=== PATIENT | male | born 1945 | race Two or more races ===

== ENCOUNTER → 2017-01-28 | Outpatient (CLI) | payer OTHER ==
[2014-01-22 12:53] VITALS: BP 132/64
[2017-01-28 09:27] LABS: BASO % 1 % (0-3); EOS % 2 % (0-3); HEMATOCRIT 48.5 % (39.0-53.0); HEMOGLOBIN 16.4 g/dL (13.0-17.5); LYMPH # 2.5 x10^3/uL (1.0-4.8); LYMPH % 33 % (24-48); MEAN CORPUSCULAR HEMOGLOBIN 35 pg (25-35); MEAN CORPUSCULAR HGB CONC 34 g/dL (31-37); MEAN CORPUSCULAR VOLUME 105 fL (79-100); MONO % 12 % (0-9); NEUT % 52 % (31-73); PLATELET COUNT 200 x10^3/uL (140-400); RED BLOOD COUNT 4.63 x10^6/uL (4.30-5.70); RED CELL DISTRIBUTION WIDTH 13.3 % (11.5-14.5); WHITE BLOOD COUNT 7.5 x10^3/uL (4.0-11.0)
[2017-01-28 09:53] LABS: ALBUMIN 4.2 g/dL (3.4-5.0); ALBUMIN/GLOBULIN RATIO 1.1 (1.0-1.7); CREATININE 0.9 mg/dL (0.7-1.3); GFR 83.7; POTASSIUM 4.2 mmol/L (3.5-5.1); TOTAL BILIRUBIN 0.5 mg/dL (0.2-1.0); TOTAL PROTEIN 7.9 g/dL (6.4-8.2)
== END | disposition home or self-care (01) ==
LOC: LAB 09:05
PROVIDERS: ATTEND Internal Medicine Cardiovascular Disease
DX: E11.9 Type 2 diabetes mellitus without complications (principal); I10 Essential (primary) hypertension; E78.2 Mixed hyperlipidemia; J44.9 Chronic obstructive pulmonary disease, unspecified; K76.0 Fatty (change of) liver, not elsewhere classified
CPT/HCPCS: 36415; 80053; 83036; 83700; 85025

== ENCOUNTER 2017-10-20 06:43 | Outpatient (CLI) | payer OTHER ==
[2017-10-20] MEDS ORDERED: LIDOCAINE 2% 20 ML VIAL. (07:07)
[2017-10-20] MEDS ORDERED: IODIXANOL 320 MG/ML 100 ML VIAL. (07:07)
[2017-10-20 07:45] LABS: HEMATOCRIT 41.1 % (39.0-53.0); HEMOGLOBIN 13.9 g/dL (13.0-17.5); MEAN CORPUSCULAR HEMOGLOBIN 35 pg (25-35); MEAN CORPUSCULAR HGB CONC 34 g/dL (31-37); MEAN CORPUSCULAR VOLUME 103 fL (79-100); PLATELET COUNT 219 x10^3/uL (140-400); RED BLOOD COUNT 3.97 x10^6/uL (4.30-5.70); RED CELL DISTRIBUTION WIDTH 14.2 % (11.5-14.5); WHITE BLOOD COUNT 7.4 x10^3/uL (4.0-11.0)
[2017-10-20 07:50] LABS: ANION GAP 2 (6-14); BLOOD UREA NITROGEN 22 mg/dL (8-26); CALCIUM 8.3 mg/dL (8.5-10.1); CARBON DIOXIDE 30 mmol/L (21-32); CHLORIDE 106 mmol/L (98-107); CREATININE 1.1 mg/dL (0.7-1.3); GFR 66.2; GLUCOSE 96 mg/dL (70-99); POTASSIUM 3.9 mmol/L (3.5-5.1); SODIUM 138 mmol/L (136-145)
[2017-10-20 08:03] LABS: INR 1.1 (0.8-1.1); PARTIAL THROMBOPLASTIN TIME 32 SEC (24-38); PROTHROMBIN TIME PATIENT 13.5 SEC (11.7-14.0)
[2017-10-20] MEDS ORDERED: fentaNYL PF VIAL 100 MCG/2 ML VIAL (08:24)
[2017-10-20] MEDS ORDERED: MIDAZOLAM HCL/PF 2 MG/2 ML VIAL. (08:25)
[2017-10-20] MEDS: IODIXANOL 320 MG/ML 100 ML VIAL. IART (08:45)
[2017-10-20] MEDS: LIDOCAINE 2% 20 ML VIAL. IJ (08:55)
[2017-10-20] MEDS: MIDAZOLAM HCL/PF 2 MG/2 ML VIAL. IV (08:56)
[2017-10-20] MEDS: fentaNYL PF VIAL 100 MCG/2 ML VIAL IV (08:57)
[2017-10-20] MEDS ORDERED: 0.9 % SODIUM CHLORIDE 10 ML DISP.SYRIN. IV (09:00)
[2017-10-20] MEDS ORDERED: NITROGLYCERIN SUBLINGUAL 0.4 MG BOTTLE OF 25. SL (09:00)
== END 2017-10-20 11:36 | disposition home or self-care (01) ==
LOC: CCL 06:43
DX: I25.110 Atherosclerotic heart disease of native coronary artery with unstable angina pectoris (principal); I10 Essential (primary) hypertension; K21.9 Gastro-esophageal reflux disease without esophagitis; Z87.891 Personal history of nicotine dependence; Z79.82 Long term (current) use of aspirin; Z79.899 Other long term (current) drug therapy; Z79.01 Long term (current) use of anticoagulants
CPT/HCPCS: 36415; 80048; 85027; 85610; 85730; 93458; 99152; 99153; C1769; C1771; C1892; G0269; J1644; J2001; J2250; J3010

== ENCOUNTER 2018-02-24 08:05 | Emergency (ER) | payer OTHER ==
[~2018-02-24] VITALS: Ht 172.7 cm; Wt 81.6 kg
[~2018-02-24 08:05] MED LIST: ASPI-630 PO; ISOS30TA4 PO; LISI10TA2 PO; METO25TA4 PO; NAPR-585 PO; OMEP40CA5 PO
[2018-02-24 08:35] VITALS: BP 148/69
[2018-02-24] MEDS ORDERED: HYDR-971 PO (08:43)
[2018-02-24] MEDS ORDERED: METH4TAB2 PO (08:43)
--- NOTE | 2018-02-24 08:44 | PHYS DOC ---
Past Medical History Past Medical History: CAD, GERD, Heart Disease, Hypertension Past Surgical History: No Surgical History Alcohol Use: None Drug Use: None Adult General Chief Complaint Chief Complaint: LOWER BACK PAIN OR INJURY HPI HPI Patient is a 72 year old male who presents with pain shooting through his buttock and into his right leg. The patient states that he was picking up a piece of plywood when he felt a pulling sensation. He denies spontaneous loss of bowel or bladder, saddle numbness or foot drop. He is able to bear weight on that extremity but states it is painful. He has not taken [id number] pain medications for this injury. Review of Systems Review of Systems Constitutional: Denies fever or chills [] Respiratory: Denies cough or shortness of breath [] Cardiovascular: No additional information not addressed in HPI [] GI: Denies abdominal pain, nausea, vomiting, bloody stools or diarrhea [] : Denies dysuria or hematuria [] Musculoskeletal: See history of present illness Integument: Denies rash or skin lesions [] Neurologic: Denies headache, focal weakness or sensory changes [] Endocrine: Denies polyuria or polydipsia [] All other systems were reviewed and found to be within normal limits, except as documented in this note. Allergies Allergies Allergies Coded Allergies Type Severity Reaction Last Updated Verified No Known Drug Allergies 01/22/14 No Physical Exam Physical Exam Constitutional: Well developed, well nourished, no acute distress, non-toxic appearance. [] Cardiovascular:Heart rate regular rhythm, no murmur [] Lungs & Thorax: Bilateral breath sounds clear to auscultation [] Abdomen: Bowel sounds normal, soft, no tenderness, no masses, no pulsatile masses. [] Skin: Warm, dry, no erythema, no rash. [] Back: tenderness to midline buttock extending into the right leg, no CVA tenderness. [] Extremities: no cyanosis, no clubbing, ROM intact, no edema or ecchymosis noted. [] Neurologic: Alert and oriented X 3, normal motor function, normal sensory function, no focal deficits noted. [] Psychologic: Affect normal, judgement normal, mood normal. [] Current Patient Data Vital Signs Vital Signs Date Time Temp Pulse Resp B/P (MAP) Pulse Ox O2 Delivery O2 Flow Rate FiO2 02/24/18 08:35 98.1 64 16 148/69 (95) 96 Room Air 98.1 EKG EKG [] Radiology/Procedures Radiology/Procedures [] Course & Med Decision Making Course & Med Decision Making Pertinent Labs and Imaging studies reviewed. (See chart for details) []The patient was given crutches and crutch training to assist with mobility. Staff Physician Addendum: I was working in the ER during the course of this patient's visit. I was available for consultation as needed, but I was not directly involved in the care of this patient. Dragon Disclaimer Dragon Disclaimer This electronic medical record was generated, in whole or in part, using a voice recognition dictation system. Departure Departure Impression: Primary Impression: Sciatica Disposition: HOME, SELF-CARE Condition: STABLE Referrals: CUONG JAFFE MD (PCP) Patient Instructions: Sciatica Additional Instructions: Take the medication as directed. Do not drive or operate heavy machinery if taking the pain medication. Use the crutches for relief from your leg pain. Follow-up with your primary care provider if not improving in 4 days or return to the emergency department if worsening. Scripts Hydrocodone/Apap 5-325 (NORCO 5-325 TABLET) 1 Each Tablet 1 TAB PO PRN Q6HRS PRN for PAIN, #10 TAB 0 Refills Prov: CHRIS FRANKS APRN 02/24/18 Methylprednisolone (MEDROL) 4 Mg Tab.ds.pk 1 PKG PO UD for inflammation, #1 PKG Prov: CHRIS FRANKS APRN 02/24/18 CHRIS FRANKS APRN Feb 24, 2018 08:44 EDOUARD CHARLTON MD Feb 24, 2018 14:30
== END 2018-02-24 08:50 | disposition home or self-care (01) ==
LOC: ER 08:05
DX: M54.41 Lumbago with sciatica, right side (principal); I11.9 Hypertensive heart disease without heart failure; K21.9 Gastro-esophageal reflux disease without esophagitis; I25.10 Atherosclerotic heart disease of native coronary artery without angina pectoris
CPT/HCPCS: 99283

== ENCOUNTER 2018-02-28 08:15 | Emergency (ER) | payer OTHER ==
[~2018-02-28] VITALS: Ht 167.6 cm; Wt 81.6 kg
[~2018-02-28 08:15] MED LIST changes: +HYDR-971 PO; +METH4TAB2 PO
[2018-02-28 08:38] VITALS: BP 146/70
[2018-02-28] MEDS ORDERED: diazePAM 5 MG TABLET PO ONE (08:45)
[2018-02-28] MEDS ORDERED: MORPHINE SULFATE 10 MG/ML VIAL. IM ONE (08:45)
[2018-02-28] MEDS ORDERED: methylPREDNISolone SOD SUCC PF 125 MG/2 ML VIAL. IM ONE (08:45)
--- NOTE | 2018-02-28 09:00 | PHYS DOC ---
Past Medical History Past Medical History: CAD, GERD, Heart Disease, Hypertension Past Surgical History: Other Additional Past Surgical Histo: RT HAND SURGERY Alcohol Use: None Drug Use: None Adult General Chief Complaint Chief Complaint: PAIN CONTROL HPI HPI Patient is a 72 year old male with history of CAD, hypertension, acid reflex, who presents today with 10 out of 10 right low back pain radiating to the right lower extremity that began 4 days ago after he lifted something heavy doing yard work. Patient states he was seen in the ED 4 days ago, he states he was given [place] which he ran out and is on medrol dose pack. He states he has continued to have the pain. Patient denies any loss of bowel bladder function. Denies any numbness or tingling to bilateral lower extremities. He states his pain is worse on weight bearing. He is asking for x-rays. Patient is Mohawk speaking and interpretation is provided by grand daughter. Review of Systems Review of Systems Constitutional: Denies fever or chills [] Musculoskeletal: Reports right low back pain radiating to the right lower extremity Integument: Denies rash or skin lesions [] Neurologic: Denies headache, focal weakness or sensory changes [] All other systems were reviewed and found to be within normal limits, except as documented in this note. Current Medications Current Medications Current Medications Medications (Trade) Dose Ordered Sig/Alonzo Start Time Stop Time Status Last Admin Dose Admin Diazepam (Valium) 5 mg 1X ONCE 02/28/18 08:45 02/28/18 08:46 DC 02/28/18 09:08 5 MG Methylprednisolone Sodium Succinate (SOLU-Medrol 125MG VIAL) 125 mg 1X ONCE 02/28/18 08:45 02/28/18 08:46 DC 02/28/18 09:07 125 MG Morphine Sulfate (Morphine Sulfate) 5 mg 1X ONCE 02/28/18 08:45 02/28/18 08:46 DC 02/28/18 09:08 5 MG Allergies Allergies Allergies Coded Allergies Type Severity Reaction Last Updated Verified No Known Drug Allergies 01/22/14 No Physical Exam Physical Exam Constitutional: Well developed, well nourished, no acute distress, non-toxic appearance. [] Abdomen: Bowel sounds normal, soft, no tenderness, no masses, no pulsatile masses. [] Skin: Warm, dry, no erythema, no rash. [] Back: Tenderness of the right SI joint, no midline lumbar spine tenderness, no CVA tenderness. Positive straight leg raise to the right lower extremity at approximately 30. Extremities: No tenderness, no cyanosis, no clubbing, ROM intact, no edema. [] Neurologic: Alert and oriented X 3, normal motor function, normal sensory function, no focal deficits noted. [] Psychologic: Affect normal, judgement normal, mood normal. [] Current Patient Data Vital Signs Vital Signs Date Time Temp Pulse Resp B/P (MAP) Pulse Ox O2 Delivery O2 Flow Rate FiO2 02/28/18 09:08 18 97 Room Air 02/28/18 08:38 98.2 65 146/70 (95) 98.2 EKG EKG [] Radiology/Procedures Radiology/Procedures [] Course & Med Decision Making Course & Med Decision Making Pertinent Labs and Imaging studies reviewed. (See chart for details) This is a 72-year-old male patient presenting to the ED today with right low back pain radiating to the right lower extremity that began 4 days ago after lifting something heavy doing yardwork. Patient was requesting x-rays, x-rays were ordered for Lumbar spine, he declined. He was seen in the ED 4 days ago. He was discharged with hydrocodone. He did not follow-up with his own PCP. We will send him home with Voltaren cream and Valium. Instructed to apply heat to his lumbar spine. Instructed follow up with his doctor as soon as he can. He was given valium, morphine and Solumedrol in the Ed. Dragon Disclaimer Dragon Disclaimer This electronic medical record was generated, in whole or in part, using a voice recognition dictation system. Departure Departure Impression: Primary Impression: Sciatica of right side Additional Impression: Acute lumbosacral myofascial strain Disposition: HOME, SELF-CARE Condition: STABLE Referrals: CUONG JAFFE MD (PCP) follow up with your doctor in the course of this week Patient Instructions: Lumbosacral Strain, Sciatica with Rehab[facility] Additional Instructions: You were elevated in the emergency room with the back pain with sciatica from a muscle strain. Use/take the prescribed medications as ordered. Follow-up with your primary care doctor or global logistics manager as soon as possible. Apply heat to affected areas. Scripts Diclofenac Sodium (VOLTAREN) 100 Gm Gel..gram. 1 GM TP QID, #100 GM 2 Refills Prov: TIM PHELPS ZAK 02/28/18 Diazepam (VALIUM) 5 Mg Tablet 5 MG PO TID, #21 TAB Prov: TIM PHELPS ZAK 02/28/18 Attending Signature Attending Signature I have reviewed the PA/MANAGER USER EXPERIENCE's note and plan of care. I was available for consultation as needed during the patient's visit in the emergency department. I agree with the clinical impression, plan, and disposition. Problem Qualifiers Additional Impression: Acute lumbosacral myofascial strain Encounter type: initial encounter Qualified Codes: S39.012A - Strain of muscle, fascia and tendon of lower back, initial encounter TIM PHELPS ZAK Feb 28, 2018 09:00 CUONG RUBI DO Feb 28, 2018 21:45
[2018-02-28] MEDS ORDERED: DIAZ5TAB PO (09:05)
[2018-02-28] MEDS ORDERED: DICL100G18 TP (09:05)
== END 2018-02-28 09:42 | disposition home or self-care (01) ==
LOC: ER 08:15
DX: S39.012A Strain of muscle, fascia and tendon of lower back, initial encounter (principal); M54.41 Lumbago with sciatica, right side; K21.9 Gastro-esophageal reflux disease without esophagitis; I11.9 Hypertensive heart disease without heart failure; I25.10 Atherosclerotic heart disease of native coronary artery without angina pectoris; X50.0XXA Overexertion from strenuous movement or load, initial encounter; Y93.89 Activity, other specified; Y92.89 Other specified places as the place of occurrence of the external cause; Y99.8 Other external cause status
CPT/HCPCS: 96372; 99284; J2270; J2930

== ENCOUNTER → 2018-06-20 | Outpatient (CLI) | payer OTHER ==
[~2018-06-20] MED LIST changes: +DIAZ5TAB PO; +DICL100G18 TP; +HYDR-3164 PO; -HYDR-971 PO
--- NOTE | 2018-06-20 17:11 | RAD ---
EXAM: 1. 3 views right shoulder 2. 2 views right scapula 3. 2 views right humerus DATE: 06/20/2018 12:00 AM INDICATION: patient fell in the shower, right shoulder pain around medial vertebral border of the scapula. COMPARISON: No Prior FINDINGS: Right shoulder: No evidence of acute fracture or dislocation. Humeral head is high riding. Glenohumeral joint degenerative change. Mild AC joint degenerative change. Decreased bone mineral density. Right scapula: Subtle lucency is seen through the inferior scapular body without displacement. Although this may be artifactual, a nondisplaced fracture may have similar appearance. This can be correlated with patient's symptoms/point tenderness. Right humerus: 2 views of the right humerus demonstrate no evidence for acute fracture or dislocation. IMPRESSION: 1. Subtle lucency through the inferior margin of the scapula may represent a nondisplaced scapular fracture or artifact. This can be correlated with patient's symptoms. 2. Otherwise, no shoulder or humeral fracture is identified. Electronically signed by: Girish Morataya MD (06/20/2018 5:07 PM) [facility]
--- NOTE | 2018-06-20 17:14 | RAD ---
EXAM: AP, lateral and radial head views of the right elbow DATE: 06/20/2018 12:00 AM INDICATION: patient fell in the shower, patient complains of pain to posterior elbow. COMPARISON: No Prior FINDINGS: No evidence of acute fracture or dislocation. No elbow joint effusion. Mild dorsal soft tissue swelling. IMPRESSION: No evidence of acute fracture or dislocation. Electronically signed by: Girish Morataya MD (06/20/2018 5:09 PM) [facility]
--- NOTE | 2018-06-20 17:15 | RAD ---
EXAM: PA, oblique and lateral views of the right wrist DATE: 06/20/2018 12:00 AM INDICATION: patient fell in the shower, patient has right arm and shoulder pain. COMPARISON: No Prior FINDINGS: No evidence of acute fracture or dislocation. Joint spaces are preserved without significant degenerative/proliferative change. Mild thumb CMC joint degenerative changes are seen. Mild decreased bone mineral density. IMPRESSION: No evidence of acute fracture or dislocation. If there is persistent clinical concern for fracture, follow-up radiographs in 10-14 days is recommended. Electronically signed by: Girish Morataya MD (06/20/2018 5:10 PM) [facility]
== END | disposition home or self-care (01) ==
LOC: RAD 09:27
PROVIDERS: ATTEND Internal Medicine Cardiovascular Disease
DX: M18.9 Osteoarthritis of first carpometacarpal joint, unspecified (principal); M25.421 Effusion, right elbow; W18.2XXA Fall in (into) shower or empty bathtub, initial encounter; Y93.89 Activity, other specified; Y92.89 Other specified places as the place of occurrence of the external cause; Y99.8 Other external cause status
CPT/HCPCS: 73010; 73030; 73060; 73080; 73110